=== PATIENT | female | born 1970 | race Hispanic/Latino ===

== ENCOUNTER → 2024-03-26 | Day surgery (SDC) | payer BC ==
[~2024-03-26] MED LIST: DEXAMETHASONE SOD PHOS INJ 4 MG/ML SDV ONE; FENTANYL CITRATE/PF 100MCG/2 ML INJ ONE; JARDIANCE10 MG PO; ONDANSETRON HCL INJ 2MG/ML 2ML 2 MG/ML VIAL ONE; RYBELSUS3 MG PO
[2024-03-26] MEDS: LACTATED RINGER'S 1,000 ML ONE (12:53)
[2024-03-26 14:49] VITALS: TEMP 98.4
[2024-03-26 15:15] VITALS: BP 121/75; PULSE 68; RESP 15; O2SAT 97
== END | disposition home or self-care (01) ==
LOC: OR 12:10
PROVIDERS: ATTEND Internal Medicine Gastroenterology
DX: Z12.11 Encounter for screening for malignant neoplasm of colon (principal); K29.50 Unspecified chronic gastritis without bleeding; B96.81 Helicobacter pylori [H. pylori] as the cause of diseases classified elsewhere; K63.89 Other specified diseases of intestine; K20.90 Esophagitis, unspecified without bleeding; K21.9 Gastro-esophageal reflux disease without esophagitis; K64.8 Other hemorrhoids; D72.820 Lymphocytosis (symptomatic); E11.9 Type 2 diabetes mellitus without complications; I10 Essential (primary) hypertension; E66.01 Morbid (severe) obesity due to excess calories; F41.9 Anxiety disorder, unspecified; Z01.810 Encounter for preprocedural cardiovascular examination; Z79.84 Long term (current) use of oral hypoglycemic drugs
CPT/HCPCS: 43239; 45380; 93005; J2470; J3010; J7121; 45378; J1100; J2405

== ENCOUNTER → 2024-04-26 | Outpatient (REF) | payer BC ==
[~2024-04-26] MED LIST changes: -DEXAMETHASONE SOD PHOS INJ 4 MG/ML SDV ONE; +DIATRIZOATE MEGL/DIATRIZOA SOD 30 ML BTL PO ONE; -FENTANYL CITRATE/PF 100MCG/2 ML INJ ONE; +IOPAMIDOL 370 MG/ML 100 ML INFUS..BTL INJ ONE; -ONDANSETRON HCL INJ 2MG/ML 2ML 2 MG/ML VIAL ONE
[2024-04-26 15:56] LABS: CREATININE, SERUM 0.79 mg/dL (0.57-1.11)
== END ==
LOC: CT 15:16
PROVIDERS: ATTEND Nurse Practitioner
DX: R10.10 Upper abdominal pain, unspecified (principal); A04.8 Other specified bacterial intestinal infections
CPT/HCPCS: 36415; 74160; 82565; 84520; Q9963; Q9967